=== PATIENT | male | born 1985 ===

== ENCOUNTER 2023-02-27 18:21 | Emergency (ER) | payer SELFPAY ==
[~2023-02-27] VITALS: Ht 167.6 cm; Wt 77.1 kg
[2023-02-27 18:42] VITALS: BP 130/90
== END 2023-02-27 18:53 | disposition home or self-care (01) ==
LOC: ER 18:21
DX: L23.7 Allergic contact dermatitis due to plants, except food (principal)
CPT/HCPCS: 96372; 99282-25; J3301